=== PATIENT | male | born 1955 | race Caucasian/White ===

== ENCOUNTER 2017-04-08 04:37 | Emergency (ER) | payer SELFPAY ==
[2017-04-08 05:16] VITALS: BP 144/92
--- NOTE | 2017-04-08 05:52 | ERNOTE ---
ENT HPI Date of Service: 04/08/17 Presenting Symptoms: dental pain Time Seen by Provider: 04/08/17 05:51 Source: patient - Immun/Allergies/Home Medications Allergies/Adverse Reactions: Allergies Allergy/AdvReac Type Severity Reaction Status Date / Time lisinopril AdvReac Verified 04/08/17 05:09 morphine AdvReac Verified 04/08/17 05:09 Home Medications: HOME MEDICATIONS Amlodipine Besylate 5 mg PO DAILY 04/08/17 [Last Taken Unknown] Aspirin/Calcium Carbonate/Mag [Aspirin Buffered 325 mg Tab] 325 mg PO DAILY [Last Taken Unknown] Citalopram Hydrobromide [Citalopram HBr] 40 mg PO DAILY 04/08/17 [Last Taken Unknown] Fenofibrate,Micronized [Lofibra] 134 mg PO DAILY 04/08/17 [Last Taken Unknown] Hydrochlorothiazide 12.5 mg PO DAILY 04/08/17 [Last Taken Unknown] Meloxicam [Mobic] 15 mg PO DAILY 04/08/17 [Last Taken Unknown] Penicillin V Potassium [Pen-Vee K] 500 mg PO QID #40 tab 04/08/17 [Last Taken Unknown] Valsartan [Diovan] 320 mg PO DAILY 04/08/17 [Last Taken Unknown] traMADol HCL [Ultram] 50 - 100 mg PO QID PRN #20 tab 04/08/17 [Last Taken Unknown] - History of Present Illness Narrative: C/O TOOTH ACHE FOR THE PAST TWO WEEKS , EVER SINCE HE BIT DOWN ON SOMETHING HARD. THEN YESTERDAY AFTERNOON HE STARTED GETTING SWELLING TO HIS LEFT JAW. HE HAS A HX OF CARIOUS TEETH . HE DTRIED TO CALL PCP FOR ANTIBIOTICS BUT THEY NEVER CALLED BACK. NO FEVER. HE SAYS HOT COFFEE MAKES IT FEEL BETTER. Review of Systems - Review of Systems Constitutional: Present: See HPI EYE: Present: no symptoms reported ENT: Present: See HPI Respiratory: Present: no symptoms reported Cardiology: Present: no symptoms reported Gastrointestinal/Abdominal: Present: no symptoms reported Genitourinary: Present: no symptoms reported Musculoskeletal: Present: no symptoms reported Skin: Present: no symptoms reported Neurological: Present: no symptoms reported Endocrine: Present: no symptoms reported Hematologic/Lymphatic: Present: no symptoms reported Psych: Present: no symptoms reported All Other Systems: All systems neg except as marked - Patient's Past Medical History Patient History - Medical: Other Patient History - Cardiac/Respiratory: Hypertension, Hyperlipidemia Patient History - Cancer: No Hx of Cancer Patient History - Surgical Procedures: No surgical history - Social History Abuse History: No History of abuse Psych History: No pertinent hx Alcohol Use: none Drug Use: none Physical Exam - Physical Exam General Appearance: Present: wd/wn, alert, severe distress Eye Exam: Normal inspection: bilateral, PERRL: bilateral, EOMI: bilateral Ears, Nose, Throat: Present: normal except - - VERY POOR DENTITION THROUGH OUT HIS MOUTH WITH MANY MISSING TEETH AND SOME ERODED IN TO GUMS AND MOST OF OTHERS CARIOUS. HIS LEFT UPPER 1ST MOLAR HAS EROSION AT THE GUM LINE AND THERE IS SWELLING AND ERYTHEMA TO THE SURRONDING GUM AND HE HAS SOFT TISSUE SWELLING TO THE BUCCAL MUCOSA. Neck: Present: normal inspection ED Progress - Vital Signs Patient's Vital Signs:: I have reviewed the patient's vital signs. Vital Signs: Vital Signs 04/08/17 05:12 Temperature 37.2 C Pulse Rate 68 Respiratory 18 Rate Blood Pressure 144/92 O2 Sat by Pulse 100 Oximetry - Progress/Reassessment Chief Complaint: Dental Problem Departure Clinical Impression: Tooth abscess - Departure Disposition: Home Follow Up Needed Condition: Fair Instructions: Dental Abscess, [id number] Additional Instructions: Call your dentist today to see if he wants to see you right away. Take the medication as directed. Referrals: Milka Bui DO [Primary Care Provider] - Prescriptions: Penicillin V Potassium [Pen-Vee K] 500 mg PO QID #40 tab traMADol HCL [Ultram] 50 - 100 mg PO QID PRN #20 tab PRN Reason: Pain
[2017-04-08] MEDS ORDERED: PENICILLIN V POTASSIUM 250 MG TABLET PO ONE (06:08)
[2017-04-08] MEDS ORDERED: PENICILLIN V POTASSIUM 250 MG TABLET ONE (06:08)
== END 2017-04-08 06:15 | disposition home or self-care (01) ==
LOC: ER 04:37
DX: K04.7 Periapical abscess without sinus (principal); I10 Essential (primary) hypertension; E78.5 Hyperlipidemia, unspecified